=== PATIENT | male | born 1955 | race Caucasian/White ===

== ENCOUNTER 2020-07-01 10:25 | Emergency (ER) | payer MEDICARE, OTHER ==
[~2020-07-01] VITALS: Ht 180.3 cm; Wt 95.3 kg
[~2020-07-01 10:25] MED LIST: ALLUPURINOL; GLIMPERIDE; HYDROCO; JANUMET; Z.0.CYMBALTA60 MG PO; Z.0.LISINOPRIL40 MG PO; Z.0.PROTONIX20 MG PO; Z.0.VYTORIN 10-401 E PO
[2020-07-01] MEDS ORDERED: ONDANSETRON HCL INJ 2MG/ML 2ML 2 MG/ML VIAL IV STA (11:32)
[2020-07-01] MEDS ORDERED: SODIUM CHLORIDE 0.9% 1000ML 1,000 ML IV STA ×2 (11:32→12:26)
[2020-07-01] MEDS ORDERED: SODIUM CHLORIDE FLUSH 10 ML SYR INJ PRN (11:45)
[2020-07-01] MEDS ORDERED: ONDANSETRON HCL INJ 2MG/ML 2ML 2 MG/ML VIAL ONE (11:52)
[2020-07-01] MEDS ORDERED: SODIUM CHLORIDE 0.9% 1000ML 1,000 ML ONE ×2 (11:52→12:42)
[2020-07-01] MEDS ORDERED: METFORMIN HCL500 MG PO (12:02)
[2020-07-01] MEDS ORDERED: PREDNISONE20 MG PO (15:16)
[2020-07-01] MEDS ORDERED: PROAIR HFA INH8.5 GM PO (15:16)
[2020-07-01] MEDS ORDERED: ONDANSETRON ODT8 MG PO (15:16)
[2020-07-01] MEDS ORDERED: BROMFED DM COU118 ML PO (15:16)
[2020-07-01] MEDS ORDERED: ALBUTEROL2.5 MG/3 M INH (15:16)
[2020-07-01] MEDS ORDERED: AZITHROMYCIN500 MG PO (15:16)
[2020-07-01 15:27] VITALS: BP 137/78
== END 2020-07-01 15:37 | disposition home or self-care (01) ==
LOC: FSED 10:45
DX: J40 Bronchitis, not specified as acute or chronic (principal); R05 Cough; R11.0 Nausea; N17.9 Acute kidney failure, unspecified; R79.89 Other specified abnormal findings of blood chemistry
CPT/HCPCS: 71046; 80048; 85025; 96374; 99284; J2405; J7030

== ENCOUNTER 2020-07-13 23:26 | Inpatient (IN) | payer MEDICARE, OTHER ==
[~2020-07-13] VITALS: Ht 180.3 cm; Wt 95.3 kg
[~2020-07-13 23:26] MED LIST changes: +ALBUTEROL2.5 MG/3 M INH; +AZITHROMYCIN500 MG PO; +BROMFED DM COU118 ML PO; +METFORMIN HCL500 MG PO; +ONDANSETRON ODT8 MG PO; +PREDNISONE20 MG PO; +PROAIR HFA INH8.5 GM PO
[2020-07-13] MEDS ORDERED: ASPIRIN 81 MG CHEW TAB PO ONE (23:45)
[2020-07-13] MEDS ORDERED: CLOPIDOGREL BISULFATE 75 MG TAB PO ONE (23:45)
[2020-07-14] VITALS (17 sets, daily range): BP systolic 104–168; BP diastolic 61–98
[2020-07-14] MEDS ORDERED: ASPIRIN 81 MG ENTERIC COATED PO ONE (00:01)
[2020-07-14] MEDS ORDERED: CLOPIDOGREL BISULFATE 75 MG TAB ONE (00:01)
[2020-07-14 00:36] LABS: BASOPHILS # (AUTO) 0.1 (0.0-0.1); BASOPHILS % 0.4 % (0.0-1.0); EOSINOPHILS # (AUTO) 0.3 (0.0-0.4); HEMATOCRIT 39.9 % (38.2-49.6); LYMPHOCYTES # (AUTO) 3.9 (1.0-3.2); LYMPHOCYTES % 27.3 % (18.0-39.1); MEAN CORPUSCULAR HEMOGLOBIN 31.1 pg (28-32); MEAN CORPUSCULAR HGB CONC 35.1 g/dL (31-35); MEAN CORPUSCULAR VOLUME 88.7 fL (81-99); MONOCYTES # (AUTO) 1.3 (0.2-0.8); MONOCYTES % 9.2 % (4.4-11.3); NEUTROPHILS # (AUTO) 8.7 (2.1-6.9); NEUTROPHILS % 60.5 % (38.7-80.0); PLATELET COUNT 253 x10e3/uL (140-360); RED CELL DISTRIBUTION WIDTH 11.6 % (11.7-14.4)
[2020-07-14 00:41] LABS: INR 0.8; PARTIAL THROMBOPLASTIN TIME 26.3 seconds (23.8-35.5); PROTHROMBIN TIME 11.5 seconds (11.9-14.5)
[2020-07-14] MEDS ORDERED: SODIUM CHLORIDE 0.9% 1000ML 1,000 ML ONE ×2 (00:42→00:43)
[2020-07-14 00:48] LABS: ALANINE AMINOTRANSFERASE 42 IU/L (0-55); ALBUMIN 4.3 g/dL (3.5-5.0); ALBUMIN/GLOBULIN RATIO 1.2 (0.8-2.0); ALKALINE PHOSPHATASE 105 IU/L (40-150); ANION GAP 16.5 mmol/L (8-16); BLOOD UREA NITROGEN 27 mg/dL (7-26); BUN/CREATININE RATIO 17 (6-25); CALCIUM 10.1 mg/dL (8.4-10.2); CARBON DIOXIDE 24 mmol/L (22-29); CHLORIDE 100 mmol/L (98-107); CREATINE KINASE 40 IU/L (30-200); CREATININE, SERUM 1.61 mg/dL (0.72-1.25); EST GLOMERULAR FILTRATION RATE 43 ML/MIN (60-); GLUCOSE 333 mg/dL (74-118); POTASSIUM 5.5 mmol/L (3.5-5.1); SODIUM 135 mmol/L (136-145)
[2020-07-14] MEDS ORDERED: MIDAZOLAM HCL 2 MG/2 ML VIAL ONE (00:56)
[2020-07-14] MEDS ORDERED: FENTANYL CITRATE/PF 100MCG/2 ML INJ ONE (00:56)
[2020-07-14] MEDS ORDERED: EPTIFIBATIDE 10 ML ONE (01:01)
[2020-07-14 01:02] LABS: CREATINE KINASE MB < 1.00 ng/mL (0-4.3)
[2020-07-14] MEDS ORDERED: METOCLOPRAMIDE HCL 10 MG/2ML VIAL ONE (01:08)
[2020-07-14] MEDS ORDERED: HYDRALAZINE HCL 20 MG/ML VIAL ONE (01:12)
[2020-07-14] MEDS ORDERED: EPINEPHRINE HCL SYRINGE ONE (01:28)
[2020-07-14] MEDS: METOPROLOL TARTRATE 25 MG TAB PO SCH ×3 (01:45→17:31)
[2020-07-14] MEDS ORDERED: ACETAMINOPHEN 325 MG TAB PO PRN (01:45)
[2020-07-14 01:51] LABS: AMYLASE 100 U/L (25-125); LIPASE 149 U/L (8-78)
[2020-07-14] MEDS ORDERED: ASPIRIN 81 MG CHEW TAB PO ONE (02:30)
[2020-07-14] MEDS ORDERED: GLIMEPIRIDE4 MG PO (03:43)
[2020-07-14] MEDS ORDERED: SODIUM CHLORIDE 0.9% 100 ML ONE (04:54)
[2020-07-14] MEDS ORDERED: IOPAMIDOL 370 MG/ML 200 ML INFUS..BTL INJ ONE (04:54)
[2020-07-14 07:03] LABS: CREATINE KINASE MB 0.6 ng/mL (0-5.0)
[2020-07-14 07:20] LABS: BASOPHILS # (AUTO) 0.1 (0.0-0.1); BASOPHILS % 0.3 % (0.0-1.0); EOSINOPHILS # (AUTO) 0.1 (0.0-0.4); EOSINOPHILS % 0.3 % (0.0-6.0); HEMATOCRIT 38.6 % (38.2-49.6); HEMOGLOBIN 13.8 g/dL (14.0-18.0); LYMPHOCYTES # (AUTO) 2.4 (1.0-3.2); LYMPHOCYTES % 12.4 % (18.0-39.1); MEAN CORPUSCULAR HEMOGLOBIN 31.5 pg (28-32); MEAN CORPUSCULAR HGB CONC 35.8 g/dL (31-35); MEAN CORPUSCULAR VOLUME 88.1 fL (81-99); MONOCYTES # (AUTO) 1.6 (0.2-0.8); MONOCYTES % 8.3 % (4.4-11.3); NEUTROPHILS # (AUTO) 15.2 (2.1-6.9); NEUTROPHILS % 78.1 % (38.7-80.0); PLATELET COUNT 281 x10e3/uL (140-360); RED BLOOD COUNT 4.38 x10e6/uL (4.3-5.7); RED CELL DISTRIBUTION WIDTH 11.9 % (11.7-14.4)
[2020-07-14 07:24] LABS: AMYLASE 69 U/L (25-125); LIPASE 81 U/L (8-78)
[2020-07-14 07:38] LABS: ALBUMIN 4.2 g/dL (3.5-5.0); ALBUMIN/GLOBULIN RATIO 1.2 (0.8-2.0); ANION GAP 19.9 mmol/L (8-16); CREATININE, SERUM 1.46 mg/dL (0.72-1.25)
[2020-07-14 07:45] LABS: POTASSIUM 5.9 mmol/L (3.5-5.1)
[2020-07-14] MEDS ORDERED: MORPHINE SULFATE INJ 2 MG/ML SYR IV PRN (08:45)
[2020-07-14] MEDS: AMLODIPINE BESYLATE 5 MG TAB PO SCH (08:57)
[2020-07-14] MEDS: SODIUM CHLORIDE 0.9% 1000ML 1,000 ML IV SCH ×3 (08:57→17:12)
[2020-07-14] MEDS ORDERED: DEXTROSE 50% SYRINGE 50 ML IV PRN ×3 (09:45→13:45)
[2020-07-14] MEDS ORDERED: LABETALOL HCL 5 MG/ML 20ML VIAL IV PRN (10:30)
[2020-07-14] MEDS ORDERED: HYDROMORPHONE 1MG/1ML INJ IV ONE (10:45)
[2020-07-14] MEDS ORDERED: INSULIN REGULAR, HUMAN 3ML VL 100 UNIT in SODIUM CHLORIDE 0.9% 100 ML IV SCH ×2 (11:00)
[2020-07-14] MEDS: HYDROMORPHONE 1MG/1ML INJ IV PRN ×3 (11:30→21:25)
[2020-07-14] MEDS ORDERED: INSULIN REGULAR, HUMAN 100 UNIT/1 ML 3ML VIAL SQ SCH (11:30)
[2020-07-14] MEDS ORDERED: FUROSEMIDE40 MG PO (12:19)
[2020-07-14] MEDS ORDERED: NICODERM CQ1 EAC1 (12:20)
[2020-07-14] MEDS ORDERED: PROPRANOLOL HCL10 MG PO (12:23)
[2020-07-14] MEDS ORDERED: PANTOPRAZOLE SO40 MG PO (12:24)
[2020-07-14] MEDS ORDERED: ALDACTONE25 MG PO (12:24)
[2020-07-14 14:20] LABS: CREATINE KINASE MB 0.8 ng/mL (0-5.0)
[2020-07-14 14:31] LABS: FREE T4 (FREE THYROXINE) 1.33 ng/dL (0.8-1.8); THYROID STIMULATING HORMONE 1.05 uIU/mL (0.350-4.940)
[2020-07-14] MEDS: METRONIDAZOLE 500MG/NS 100ML 100 ML IV SCH ×2 (14:41→21:03)
[2020-07-14] MEDS: CEFEPIME 1GM/NS 0.9% 50 ML 50 ML IV SCH ×2 (15:30→22:27)
[2020-07-14] MEDS ORDERED: CALCIUM CHLORIDE 10% 1.36 MEQ/ML 10ML SYR IV STA (15:34)
[2020-07-14] MEDS ORDERED: CALCIUM CHLORIDE 13.6 MEQ in SODIUM CHLORIDE 0.9% 100 ML IV ONE (16:00)
[2020-07-14] MEDS ORDERED: DEXTROSE 50% SYRINGE 50 ML IV ONE (16:30)
[2020-07-14] MEDS ORDERED: INSULIN REGULAR, HUMAN 100 UNIT/1 ML 3ML VIAL IV ONE (16:30)
[2020-07-14] MEDS ORDERED: SOD POLYSTYRENE SULFONATE SUSP 15 GM/60 ML BTL PO ONE (16:30)
[2020-07-14] MEDS ORDERED: METFORMIN HCL 500 MG TAB PO SCH (17:00)
[2020-07-14] MEDS ORDERED: NON-FORMULARY MEDICATION (Glimepiride 4 MG) PO SCH (17:00)
[2020-07-14] MEDS ORDERED: INSULIN REGULAR, HUMAN 100 UNIT/1 ML 3ML VIAL ONE (17:24)
[2020-07-14] MEDS: INSULIN REGULAR, HUMAN 3ML VL 100 UNIT in SODIUM CHLORIDE 0.9% 99 ML IV SCH ×2 (17:45)
[2020-07-14 18:34] LABS: CLARITY,URINE SL CLOUDY (CLEAR); COLOR,URINE AMBER (YELLOW)
[2020-07-14 18:35] LABS: KETONES,URINE NEGATIVE (NEGATIVE); LEUKOCYTE ESTERASE ,URINE NEGATIVE (NEGATIVE); NITRITE,URINE NEGATIVE (NEGATIVE); PROTEIN,URINE DIPSTICK 1+ (NEGATIVE); URINE UROBILINOGEN 0.2 mg/dL (0.2 - 1)
[2020-07-14 18:49] LABS: BACTERIA,URINE MANY /HPF; RBC,URINE 0-5 /HPF (0-5)
[2020-07-14] MEDS ORDERED: LIDOCAINE HCL 1% LOCAL INJ 20 ML VIAL ONE (20:09)
[2020-07-14] MEDS ORDERED: HEPARIN SOD (PORCINE) 1000 UNIT/ML SDV ONE (23:08)
[2020-07-15] VITALS (7 sets, daily range): BP systolic 102–134; BP diastolic 63–84
[2020-07-15] MEDS: SODIUM CHLORIDE 0.9% 1000ML 1,000 ML IV SCH ×3 (01:45→18:58)
[2020-07-15] MEDS: HYDROMORPHONE 1MG/1ML INJ IV PRN ×3 (02:24→22:09)
[2020-07-15] MEDS: METRONIDAZOLE 500MG/NS 100ML 100 ML IV SCH ×3 (03:50→18:16)
[2020-07-15 04:55] LABS: BASOPHILS # (AUTO) 0.1 (0.0-0.1); BASOPHILS % 0.3 % (0.0-1.0); HEMATOCRIT 40.8 % (38.2-49.6); HEMOGLOBIN 14.4 g/dL (14.0-18.0); LYMPHOCYTES # (AUTO) 1.9 (1.0-3.2); LYMPHOCYTES % 7.4 % (18.0-39.1); MEAN CORPUSCULAR HEMOGLOBIN 31.1 pg (28-32); MEAN CORPUSCULAR HGB CONC 35.3 g/dL (31-35); MEAN CORPUSCULAR VOLUME 88.1 fL (81-99); MONOCYTES # (AUTO) 1.8 (0.2-0.8); MONOCYTES % 7.1 % (4.4-11.3); NEUTROPHILS # (AUTO) 21.1 (2.1-6.9); NEUTROPHILS % 84.3 % (38.7-80.0); PLATELET COUNT 233 x10e3/uL (140-360); RED BLOOD COUNT 4.63 x10e6/uL (4.3-5.7); RED CELL DISTRIBUTION WIDTH 12.1 % (11.7-14.4)
[2020-07-15] MEDS: CEFEPIME 1GM/NS 0.9% 50 ML 50 ML IV SCH ×3 (04:55→21:11)
[2020-07-15] MEDS ORDERED: HEPARIN SOD/SOD CHLORIDE 1,000 ML IV PRN (05:00)
[2020-07-15] MEDS ORDERED: HEPARIN SOD (PORCINE) 1000 UNIT/ML SDV IV PRN ×2 (05:00→12:45)
[2020-07-15] MEDS ORDERED: SODIUM CHLORIDE 0.9% 1000ML 2,000 ML IV PRN (05:00)
[2020-07-15 05:12] LABS: ALBUMIN 3.6 g/dL (3.5-5.0); ALBUMIN/GLOBULIN RATIO 0.9 (0.8-2.0); ANION GAP 17.5 mmol/L (8-16); CALCIUM 10.3 mg/dL (8.4-10.2); CREATININE, SERUM 1.51 mg/dL (0.72-1.25); POTASSIUM 5.5 mmol/L (3.5-5.1)
[2020-07-15 05:25] LABS: MAGNESIUM 1.7 MG/DL (1.3-2.1); PHOSPHORUS 2.7 MG/DL (2.3-4.7)
[2020-07-15 05:50] LABS: AMYLASE 40 U/L (25-125); LIPASE 16 U/L (8-78)
[2020-07-15] MEDS: METOPROLOL TARTRATE 25 MG TAB PO SCH ×2 (07:11→18:58)
[2020-07-15] MEDS: ONDANSETRON HCL INJ 2MG/ML 2ML 2 MG/ML VIAL IV PRN ×2 (08:57→16:00)
[2020-07-15] MEDS: NICOTINE 14 MG/EA PATCH TOP SCH ×2 (09:00→18:22)
[2020-07-15] MEDS: PANTOPRAZOLE 40 MG 10ML VIAL IV SCH ×2 (09:00→18:22)
[2020-07-15] MEDS ORDERED: NON-FORMULARY MEDICATION (Duloxetine Hcl (Cymbalta) 60 MG) PO SCH (09:00)
[2020-07-15] MEDS ORDERED: NON-FORMULARY MEDICATION (Lisinopril 40 MG) PO SCH (09:00)
[2020-07-15] MEDS ORDERED: LISINOPRIL 20 MG TAB PO SCH (09:00)
[2020-07-15] MEDS ORDERED: FUROSEMIDE INJ 10 MG/ML 2 ML VIAL IV NR (14:15)
[2020-07-15] MEDS ORDERED: MORPHINE SULFATE INJ 4 MG/ML INJ 1ML IV ONE (16:45)
[2020-07-15] MEDS ORDERED: MORPHINE SULFATE INJ 2 MG/ML SYR ONE (16:52)
[2020-07-15] MEDS: DULOXETINE HCL 30 MG DELAYED RELEASE PO SCH (18:16)
[2020-07-15] MEDS: AMLODIPINE BESYLATE 5 MG TAB PO SCH (18:16)
[2020-07-15 20:19] LABS: CLARITY,URINE CLOUDY (CLEAR); COLOR,URINE BROWN (YELLOW); KETONES,URINE 1+ (NEGATIVE); LEUKOCYTE ESTERASE ,URINE NEGATIVE (NEGATIVE); NITRITE,URINE NEGATIVE (NEGATIVE); PROTEIN,URINE DIPSTICK >=300 (NEGATIVE); URINE UROBILINOGEN 1 mg/dL (0.2 - 1)
[2020-07-15 20:43] LABS: BACTERIA,URINE MANY /HPF
[2020-07-16] VITALS (9 sets, daily range): BP systolic 96–131; BP diastolic 59–88
[2020-07-16] MEDS: METRONIDAZOLE 500MG/NS 100ML 100 ML IV SCH ×5 (02:23→23:14)
[2020-07-16] MEDS: CEFEPIME 1GM/NS 0.9% 50 ML 50 ML IV SCH ×3 (04:36→21:18)
[2020-07-16 04:51] LABS: BASOPHILS % 0.2 % (0.0-1.0); EOSINOPHILS % 0.2 % (0.0-6.0); HEMATOCRIT 37.6 % (38.2-49.6); HEMOGLOBIN 13.1 g/dL (14.0-18.0); MEAN CORPUSCULAR HEMOGLOBIN 31.3 pg (28-32); MEAN CORPUSCULAR HGB CONC 34.8 g/dL (31-35); MONOCYTES # (AUTO) 1.1 (0.2-0.8); MONOCYTES % 5.3 % (4.4-11.3); NEUTROPHILS # (AUTO) 16.5 (2.1-6.9); NEUTROPHILS % 83.5 % (38.7-80.0); PLATELET COUNT 202 x10e3/uL (140-360); RED BLOOD COUNT 4.18 x10e6/uL (4.3-5.7); RED CELL DISTRIBUTION WIDTH 12.4 % (11.7-14.4)
[2020-07-16 05:14] LABS: ALBUMIN/GLOBULIN RATIO 0.8 (0.8-2.0); ANION GAP 19.3 mmol/L (8-16); CALCIUM 9.3 mg/dL (8.4-10.2); CREATININE, SERUM 1.55 mg/dL (0.72-1.25); POTASSIUM 4.3 mmol/L (3.5-5.1)
[2020-07-16] MEDS: SODIUM CHLORIDE 0.9% 1000ML 1,000 ML IV SCH (06:13)
[2020-07-16] MEDS ORDERED: ONDANSETRON HCL INJ 2MG/ML 2ML 2 MG/ML VIAL IV PRN (06:45)
[2020-07-16] MEDS ORDERED: ACETAMINOPHEN 325 MG TAB PO PRN (06:45)
[2020-07-16] MEDS ORDERED: HYDRALAZINE HCL 20 MG/ML VIAL IV PRN (06:45)
[2020-07-16] MEDS ORDERED: SUGAMMADEX SODIUM 200 MG/2 ML VIAL IV ONE (08:24)
[2020-07-16] MEDS ORDERED: BUPIVACAINE 0.25%/EPI 30ML SDV INJ ONE (08:25)
[2020-07-16] MEDS ORDERED: DEXTROSE 50% SYRINGE 50 ML IV ONE (08:49)
[2020-07-16] MEDS ORDERED: INSULIN REGULAR, HUMAN 100 UNIT/1 ML 3ML VIAL ONE (08:50)
[2020-07-16] MEDS ORDERED: CALCIUM CHLORIDE 10% SYRINGE 0 ML IV ONE (08:51)
[2020-07-16] MEDS: AMLODIPINE BESYLATE 5 MG TAB PO SCH (09:00)
[2020-07-16] MEDS: NICOTINE 14 MG/EA PATCH TOP SCH (09:00)
[2020-07-16] MEDS: METOPROLOL TARTRATE 25 MG TAB PO SCH ×2 (09:00→19:07)
[2020-07-16] MEDS: DULOXETINE HCL 30 MG DELAYED RELEASE PO SCH (09:00)
[2020-07-16] MEDS: PANTOPRAZOLE 40 MG 10ML VIAL IV SCH ×2 (09:00→17:00)
[2020-07-16] MEDS ORDERED: HYDROMORPHONE 2MG/ML 2 MG/ML ML ONE ×2 (09:23→09:25)
[2020-07-16] MEDS ORDERED: SUCCINYLCHOLINE CHLORIDE 20 MG/ML 10ML VIAL ONE (12:06)
[2020-07-16] MEDS ORDERED: DEXAMETHASONE SOD PHOS INJ 4 MG/ML VIAL ONE (12:06)
[2020-07-16] MEDS ORDERED: SEVOFLURANE INHAL SOLN 250 ML PEN BTL ONE (12:06)
[2020-07-16] MEDS ORDERED: CEFOXITIN SOD 1 GM VIAL ONE (12:06)
[2020-07-16] MEDS ORDERED: PHENYLEPHRINE HCL 1% 10 MG/ML VIAL ONE (12:06)
[2020-07-16] MEDS ORDERED: ONDANSETRON HCL INJ 2MG/ML 2ML 2 MG/ML VIAL ONE (12:06)
[2020-07-16] MEDS ORDERED: LIDOCAINE HCL 2% LOCAL INJ 5 ML SDV VIAL INJ ONE (12:06)
[2020-07-16] MEDS ORDERED: ROCURONIUM BROMIDE 10 MG/ML 5ML VIAL IV ONE (12:06)
[2020-07-16] MEDS ORDERED: PROPOFOL IV EMULSION 10 MG/ML 20 ML VIAL ONE (12:06)
[2020-07-16] MEDS ORDERED: FENTANYL CITRATE/PF 100MCG/2 ML INJ ONE (12:44)
[2020-07-16] MEDS ORDERED: MIDAZOLAM HCL 2 MG/2 ML VIAL ONE (12:44)
[2020-07-16] MEDS: HYDROMORPHONE 1MG/1ML INJ IV PRN ×3 (14:20→23:26)
[2020-07-16] MEDS: INSULIN REGULAR, HUMAN 3ML VL 100 UNIT in SODIUM CHLORIDE 0.9% 99 ML IV SCH ×2 (21:17)
[2020-07-17] VITALS (11 sets, daily range): BP systolic 80–140; BP diastolic 46–96
[2020-07-17] MEDS: CEFEPIME 1GM/NS 0.9% 50 ML 50 ML IV SCH ×3 (04:18→23:07)
[2020-07-17] MEDS: HYDROMORPHONE 1MG/1ML INJ IV PRN (04:33)
[2020-07-17 04:46] LABS: BASOPHILS % 0.1 % (0.0-1.0); EOSINOPHILS % 0.1 % (0.0-6.0); HEMOGLOBIN 10.5 g/dL (14.0-18.0); LYMPHOCYTES # (AUTO) 1.2 (1.0-3.2); LYMPHOCYTES % 10.9 % (18.0-39.1); MEAN CORPUSCULAR HEMOGLOBIN 32.2 pg (28-32); MONOCYTES # (AUTO) 0.4 (0.2-0.8); MONOCYTES % 3.9 % (4.4-11.3); NEUTROPHILS % 84.7 % (38.7-80.0); PLATELET COUNT 154 x10e3/uL (140-360); RED BLOOD COUNT 3.26 x10e6/uL (4.3-5.7); RED CELL DISTRIBUTION WIDTH 12.1 % (11.7-14.4)
[2020-07-17 05:08] LABS: ALANINE AMINOTRANSFERASE 44 IU/L (0-55); ALBUMIN 2.5 g/dL (3.5-5.0); ALBUMIN/GLOBULIN RATIO 0.7 (0.8-2.0); ALKALINE PHOSPHATASE 78 IU/L (40-150); ANION GAP 16.1 mmol/L (8-16); BLOOD UREA NITROGEN 33 mg/dL (7-26); BUN/CREATININE RATIO 28 (6-25); CALCIUM 8.1 mg/dL (8.4-10.2); CARBON DIOXIDE 22 mmol/L (22-29); CHLORIDE 104 mmol/L (98-107); CREATININE, SERUM 1.19 mg/dL (0.72-1.25); EST GLOMERULAR FILTRATION RATE > 60 ML/MIN (60-); GLUCOSE 149 mg/dL (74-118); POTASSIUM 4.1 mmol/L (3.5-5.1); SODIUM 138 mmol/L (136-145)
[2020-07-17] MEDS: PANTOPRAZOLE 40 MG 10ML VIAL IV SCH ×2 (09:00→17:34)
[2020-07-17] MEDS: AMLODIPINE BESYLATE 5 MG TAB PO SCH (09:00)
[2020-07-17] MEDS: NICOTINE 14 MG/EA PATCH TOP SCH (09:00)
[2020-07-17] MEDS: DULOXETINE HCL 30 MG DELAYED RELEASE PO SCH (09:25)
[2020-07-17] MEDS: METRONIDAZOLE 500MG/NS 100ML 100 ML IV SCH ×2 (10:12→17:34)
[2020-07-17] MEDS: METOPROLOL TARTRATE 25 MG TAB PO SCH ×2 (10:12→17:00)
[2020-07-17] MEDS ORDERED: ENOXAPARIN SOD INJ 40 MG/0.4 ML SYR SC SCH (17:00)
[2020-07-17] MEDS ORDERED: DEXTROSE 50% SYRINGE 50 ML IV PRN (17:15)
[2020-07-17] MEDS ORDERED: INSULIN REGULAR, HUMAN 100 UNIT/1 ML 3ML VIAL SQ ONE (17:15)
[2020-07-17] MEDS ORDERED: INSULIN LISPRO 100 UNIT/1 ML 3ML VIAL SQ ONE (18:00)
[2020-07-17] MEDS: INSULIN LISPRO 100 UNIT/1 ML 3ML VIAL SQ SCH (21:00)
[2020-07-17] MEDS ORDERED: INSULIN GLARGINE 100 UNITS/ML VIAL SQ SCH (21:00)
[2020-07-17] MEDS ORDERED: SODIUM CHLORIDE 0.9% 250ML 250 ML ONE (21:34)
[2020-07-18] VITALS: BP 114/53
[2020-07-18] MEDS: METRONIDAZOLE 500MG/NS 100ML 100 ML IV SCH ×2 (02:30→09:32)
[2020-07-18] MEDS: CEFEPIME 1GM/NS 0.9% 50 ML 50 ML IV SCH (04:49)
[2020-07-18 05:51] LABS: BASOPHILS % 0.2 % (0.0-1.0); EOSINOPHILS # (AUTO) 0.1 (0.0-0.4); HEMATOCRIT 31.1 % (38.2-49.6); HEMOGLOBIN 10.8 g/dL (14.0-18.0); LYMPHOCYTES # (AUTO) 1.7 (1.0-3.2); LYMPHOCYTES % 26.8 % (18.0-39.1); MEAN CORPUSCULAR HEMOGLOBIN 31.8 pg (28-32); MEAN CORPUSCULAR HGB CONC 34.7 g/dL (31-35); MEAN CORPUSCULAR VOLUME 91.5 fL (81-99); MONOCYTES # (AUTO) 0.4 (0.2-0.8); NEUTROPHILS % 64.5 % (38.7-80.0); PLATELET COUNT 184 x10e3/uL (140-360)
[2020-07-18 06:23] LABS: ANION GAP 12.9 mmol/L (8-16); BLOOD UREA NITROGEN 28 mg/dL (7-26); BUN/CREATININE RATIO 26 (6-25); CALCIUM 8.3 mg/dL (8.4-10.2); CARBON DIOXIDE 22 mmol/L (22-29); CHLORIDE 105 mmol/L (98-107); CREATININE, SERUM 1.08 mg/dL (0.72-1.25); EST GLOMERULAR FILTRATION RATE > 60 ML/MIN (60-); GLUCOSE 169 mg/dL (74-118); POTASSIUM 3.9 mmol/L (3.5-5.1); SODIUM 136 mmol/L (136-145)
[2020-07-18 08:00] VITALS: BP 119/58
[2020-07-18 08:45] VITALS: BP 119/58
[2020-07-18] MEDS: NICOTINE 14 MG/EA PATCH TOP SCH (09:00)
[2020-07-18] MEDS: DULOXETINE HCL 30 MG DELAYED RELEASE PO SCH (09:42)
[2020-07-18] MEDS: PANTOPRAZOLE 40 MG 10ML VIAL IV SCH (09:42)
[2020-07-18] MEDS: AMLODIPINE BESYLATE 5 MG TAB PO SCH (09:42)
[2020-07-18] MEDS: METOPROLOL TARTRATE 25 MG TAB PO SCH (09:42)
[2020-07-18] MEDS: INSULIN LISPRO 100 UNIT/1 ML 3ML VIAL SQ SCH ×4 (09:59→12:04)
[2020-07-18] MEDS ORDERED: GLIMEPIRIDE2 MG PO (10:16)
[2020-07-18] MEDS ORDERED: OZEMPIC0.25 MG/0. SC (10:17)
[2020-07-18] MEDS ORDERED: TYLENOL # 31 EA PO ×2 (10:22→10:28)
[2020-07-18] MEDS ORDERED: ACETAMINOPHEN/CODEINE 300MG - 30MG TAB PO PRN (10:30)
[2020-07-18 12:00] VITALS: BP 140/63
[2020-07-18 16:00] VITALS: BP 135/79
== END 2020-07-18 17:41 | disposition home or self-care (01) | DRG 853 ==
LOC: ER 23:37 → MED/SURG3 07-14 02:23 → OBSVTOIN 07-14 09:42 → IMCU 07-14 16:05 → MED/SURG2 07-17 19:30
PROVIDERS: ADMIT Internal Medicine; ATTEND Internal Medicine
PROC: 02HV33Z Insertion of Infusion Device into Superior Vena Cava, Percutaneous Approach (ICD-10-PCS; 2020-07-14)
PROC: 5A1D70Z Performance of Urinary Filtration, Intermittent, Less than 6 Hours Per Day (ICD-10-PCS; 2020-07-14)
PROC: 4A023N7 Measurement of Cardiac Sampling and Pressure, Left Heart, Percutaneous Approach (ICD-10-PCS; 2020-07-14)
PROC: B2111ZZ Fluoroscopy of Multiple Coronary Arteries using Low Osmolar Contrast (ICD-10-PCS; 2020-07-14)
PROC: B2151ZZ Fluoroscopy of Left Heart using Low Osmolar Contrast (ICD-10-PCS; 2020-07-14)
PROC: 0FT44ZZ Resection of Gallbladder, Percutaneous Endoscopic Approach (ICD-10-PCS; principal; 2020-07-16 07:00)
DX: A41.9 Sepsis, unspecified organism (principal); E11.10 Type 2 diabetes mellitus with ketoacidosis without coma; U07.1 COVID-19; I21.3 ST elevation (STEMI) myocardial infarction of unspecified site; J12.9 Viral pneumonia, unspecified; J96.01 Acute respiratory failure with hypoxia; N17.0 Acute kidney failure with tubular necrosis; E87.2 Acidosis; K81.0 Acute cholecystitis; R65.20 Severe sepsis without septic shock; E11.22 Type 2 diabetes mellitus with diabetic chronic kidney disease; N18.9 Chronic kidney disease, unspecified; I10 Essential (primary) hypertension; I25.10 Atherosclerotic heart disease of native coronary artery without angina pectoris; E87.5 Hyperkalemia; E78.5 Hyperlipidemia, unspecified; F32.9 Major depressive disorder, single episode, unspecified; N18.30 Chronic kidney disease, stage 3 unspecified; K82.A1 Gangrene of gallbladder in cholecystitis
CPT/HCPCS: 36415; 36556; 71045; 71275; 74175; 74470; 76700; 76937; 77001; 78227; 80048; 80053; 81001; 82150; 82550; 82553; 82948; 83036; 83690; 83735; 83880; 84100; 84132; 84439; 84443; 84484; 85025; 85379; 85610; 85730; 86706; 87040; 87340; 87350; 88304; 93306; 93458; 99152; 99153; 99284; A9537; C1766; C1887; J0171; J0330; J0360; J0692; J0694; J1100; J1170; J1327; J1644; J1650; J1815; J1817; J1940; J2001; J2250; J2270; J2370; J2405; J2765; J3010; J7030; J7050; J7799; Q9967; U0002

== ENCOUNTER 2024-10-15 14:23 | Emergency (ER) | payer MEDICARE, OTHER ==
[~2024-10-15] VITALS: Ht 180.3 cm; Wt 95.3 kg
[~2024-10-15 14:23] MED LIST changes: +ALDACTONE25 MG PO; +FUROSEMIDE40 MG PO; +GLIMEPIRIDE2 MG PO; +GLIMEPIRIDE4 MG PO; +NICODERM CQ1 EAC1; +OZEMPIC0.25 MG/0. SC; +PANTOPRAZOLE SO40 MG PO; +PROPRANOLOL HCL10 MG PO; +TYLENOL # 31 EA PO
[2024-10-15 14:46] VITALS: TEMP 98.9
[2024-10-15] MEDS: ONDANSETRON HCL INJ 2MG/ML 2ML 2 MG/ML VIAL IV STA (14:55)
[2024-10-15] MEDS: SODIUM CHLORIDE 0.9% 1000ML 1,000 ML IV STA (14:55)
[2024-10-15 15:04] LABS: BASOPHILS % 0.2 % (0.0-1.0); EOSINOPHILS # (AUTO) 0.2 (0.0-0.4); EOSINOPHILS % 2.6 % (0.0-6.0); HEMATOCRIT 39.6 % (38.2-49.6); HEMOGLOBIN 14.2 g/dL (14.0-18.0); LYMPHOCYTES # (AUTO) 2.4 (1.0-3.2); LYMPHOCYTES % 35.6 % (18.0-39.1); MEAN CORPUSCULAR HEMOGLOBIN 31.8 pg (28-32); MEAN CORPUSCULAR HGB CONC 35.9 g/dL (31-35); MEAN CORPUSCULAR VOLUME 88.6 fL (81-99); MONOCYTES # (AUTO) 0.4 (0.2-0.8); MONOCYTES % 5.3 % (4.4-11.3); NEUTROPHILS # (AUTO) 3.7 (2.1-6.9); PLATELET COUNT 218 x10e3/uL (140-360); RED BLOOD COUNT 4.47 x10e6/uL (4.3-5.7); RED CELL DISTRIBUTION WIDTH 11.9 % (11.7-14.4); WHITE BLOOD COUNT 6.62 x10e3/uL (4.8-10.8)
[2024-10-15 15:34] LABS: ALANINE AMINOTRANSFERASE 19 IU/L (0-55); ALBUMIN 4.6 g/dL (3.5-5.0); ALBUMIN/GLOBULIN RATIO 1.3 (0.8-2.0); ALKALINE PHOSPHATASE 75 IU/L (40-150); ANION GAP 19.2 mmol/L (8-16); BLOOD UREA NITROGEN 29 mg/dL (7-26); BUN/CREATININE RATIO 15 (6-25); CALCIUM 9.5 mg/dL (8.4-10.2); CARBON DIOXIDE 21 mmol/L (22-29); CHLORIDE 104 mmol/L (98-107); CREATINE KINASE 91 IU/L (30-200); CREATININE, SERUM 1.91 mg/dL (0.72-1.25); EST GLOMERULAR FILTRATION RATE 37 ML/MIN (>=60); GLUCOSE 179 mg/dL (74-118); LIPASE 88 U/L (8-78); SODIUM 139 mmol/L (136-145); TOTAL PROTEIN 8.1 g/dL (6.5-8.1)
[2024-10-15 15:38] LABS: POTASSIUM 5.2 mmol/L (3.5-5.1)
[2024-10-15 15:42] LABS: TROPONIN I < 0.001 ng/mL (0-0.300)
[2024-10-15 15:49] LABS: BILIRUBIN,TOTAL 0.6 mg/dL (0.2-1.2)
[2024-10-15] MEDS: SODIUM CHLORIDE 0.9% 1000ML 2,000 ML IV STA (17:00)
[2024-10-15] MEDS ORDERED: IOPAMIDOL 370 MG/ML 100 ML INFUS..BTL INJ ONE (17:13)
[2024-10-15 17:43] LABS: CLARITY,URINE CLEAR (CLEAR); COLOR,URINE YELLOW (YELLOW)
[2024-10-15] MEDS ORDERED: ONDANSETRON ODT4 MG PO (17:43)
[2024-10-15 17:44] LABS: BILIRUBIN,URINE NEGATIVE (NEGATIVE); GLUCOSE, URINE NEGATIVE (NEGATIVE); KETONES,URINE NEGATIVE (NEGATIVE); LEUKOCYTE ESTERASE ,URINE NEGATIVE (NEGATIVE); NITRITE,URINE NEGATIVE (NEGATIVE); PH,URINE 5.5 (5 - 7); PROTEIN,URINE DIPSTICK 2+ (NEGATIVE); URINE UROBILINOGEN 0.2 mg/dL (0.2 - 1)
[2024-10-15 17:48] LABS: BACTERIA,URINE MODERATE /HPF; EPITHELIAL CELLS,URINE RARE /LPF; RBC,URINE 0-5 /HPF (0-5); WBC,URINE (MAN) 0-5 /HPF (0-5)
[2024-10-15 17:49] LABS: MUCUS,URINE FEW; URIC ACID CRYSTALS,URINE FEW
[2024-10-15 18:10] VITALS: PULSE 80; RESP 18; O2SAT 99
[2024-10-15] MEDS ORDERED: PROTONIX40 MG PO (18:10)
[2024-10-17] MEDS ORDERED: LANTUS 3ML100 UNITS/ SQ (10:58)
== END 2024-10-15 18:00 | disposition home or self-care (01) ==
LOC: ER 14:31
DX: R11.2 Nausea with vomiting, unspecified (principal); R19.7 Diarrhea, unspecified; N28.9 Disorder of kidney and ureter, unspecified; R42 Dizziness and giddiness; E11.65 Type 2 diabetes mellitus with hyperglycemia; I10 Essential (primary) hypertension; Z86.73 Personal history of transient ischemic attack (TIA), and cerebral infarction without residual deficits
CPT/HCPCS: 36415; 74177; 80053; 81001; 82550; 83690; 84484; 85025; 93005; 99284; J2405; J7030; Q9967

== ENCOUNTER → 2024-10-19 | Day surgery (SDC) | payer MEDICARE, OTHER ==
[2024-10-17 13:47] LABS: BASOPHILS % 0.3 % (0.0-1.0); EOSINOPHILS # (AUTO) 0.2 (0.0-0.4); EOSINOPHILS % 2.8 % (0.0-6.0); HEMATOCRIT 35.8 % (38.2-49.6); LYMPHOCYTES # (AUTO) 2.4 (1.0-3.2); LYMPHOCYTES % 37.7 % (18.0-39.1); MEAN CORPUSCULAR HEMOGLOBIN 31.9 pg (28-32); MEAN CORPUSCULAR HGB CONC 36.3 g/dL (31-35); MONOCYTES # (AUTO) 0.4 (0.2-0.8); MONOCYTES % 6.1 % (4.4-11.3); NEUTROPHILS # (AUTO) 3.4 (2.1-6.9); NEUTROPHILS % 52.9 % (38.7-80.0); PLATELET COUNT 217 x10e3/uL (140-360); RED BLOOD COUNT 4.07 x10e6/uL (4.3-5.7); RED CELL DISTRIBUTION WIDTH 12.1 % (11.7-14.4)
[2024-10-17 15:34] LABS: BASOPHILS % (MANUAL) 1 % (0-1.5); EOSINOPHILS % (MANUAL) 2 % (0-7); LYMPHOCYTES % (MANUAL) 22 % (19-48); MONOCYTES % (MANUAL) 5 % (3.4-9.0); NEUTROPHILS % (MANUAL) 64 % (40-74); PLATELET ESTIMATE ADEQUATE; PLATELET MORPHOLOGY COMMENT NORMAL; RBC MORPHOLOGY COMMENT NORMAL; REACTIVE LYMPHOCYTES 6
[~2024-10-19] MED LIST changes: +FENTANYL CITRATE/PF 100MCG/2 ML INJ ONE; +LANTUS 3ML100 UNITS/ SQ; +LIDOCAINE HCL 2% LOCAL INJ 5 ML SDV VIAL INJ ONE; +METOCLOPRAMIDE HCL 10 MG/2ML VIAL ONE; +ONDANSETRON ODT4 MG PO; +PROPOFOL IV EMULSION 10 MG/ML 20 ML VIAL ONE; +PROTONIX40 MG PO
[2024-10-19] MEDS: LACTATED RINGER'S 1,000 ML ONE (16:08)
[2024-10-19 17:28] VITALS: TEMP 98
[2024-10-19 17:55] VITALS: BP 148/76; PULSE 70; RESP 16; O2SAT 97
== END | disposition home or self-care (01) ==
LOC: ENDO 15:37
PROVIDERS: ATTEND Internal Medicine Gastroenterology
DX: K22.2 Esophageal obstruction (principal); K29.50 Unspecified chronic gastritis without bleeding; K29.60 Other gastritis without bleeding; K20.90 Esophagitis, unspecified without bleeding; R19.7 Diarrhea, unspecified; Z86.0100 Personal history of colon polyps, unspecified; Z87.11 Personal history of peptic ulcer disease; E11.9 Type 2 diabetes mellitus without complications; I10 Essential (primary) hypertension; Z71.89 Other specified counseling; E78.00 Pure hypercholesterolemia, unspecified; N20.0 Calculus of kidney; Z88.2 Allergy status to sulfonamides; Z01.810 Encounter for preprocedural cardiovascular examination; Z01.812 Encounter for preprocedural laboratory examination; Z79.84 Long term (current) use of oral hypoglycemic drugs; Z79.4 Long term (current) use of insulin; Z79.899 Other long term (current) drug therapy; Z68.27 Body mass index [BMI] 27.0-27.9, adult; Z71.3 Dietary counseling and surveillance; Z86.73 Personal history of transient ischemic attack (TIA), and cerebral infarction without residual deficits
CPT/HCPCS: 36415 ×2; 43239; 43450; 82948; 85025; 88305; 93005; J2003; J2470; J2704; J2765; J3010; J7121

== ENCOUNTER → 2024-12-14 | Day surgery (SDC) | payer MEDICARE, OTHER ==
[2024-12-11 10:19] LABS: BASOPHILS # (AUTO) 0.1 (0.0-0.1); BASOPHILS % 0.8 % (0.0-1.0); EOSINOPHILS # (AUTO) 0.5 (0.0-0.4); EOSINOPHILS % 7.1 % (0.0-6.0); HEMATOCRIT 33.5 % (38.2-49.6); HEMOGLOBIN 12.1 g/dL (14.0-18.0); LYMPHOCYTES # (AUTO) 2.3 (1.0-3.2); LYMPHOCYTES % 35.9 % (18.0-39.1); MEAN CORPUSCULAR HEMOGLOBIN 32.3 pg (28-32); MEAN CORPUSCULAR HGB CONC 36.1 g/dL (31-35); MEAN CORPUSCULAR VOLUME 89.3 fL (81-99); MONOCYTES # (AUTO) 0.4 (0.2-0.8); MONOCYTES % 6.2 % (4.4-11.3); NEUTROPHILS # (AUTO) 3.1 (2.1-6.9); NEUTROPHILS % 49.8 % (38.7-80.0); PLATELET COUNT 180 x10e3/uL (140-360); RED BLOOD COUNT 3.75 x10e6/uL (4.3-5.7); RED CELL DISTRIBUTION WIDTH 12.2 % (11.7-14.4)
[~2024-12-14] MED LIST changes: +CRESTOR40 MG; -FENTANYL CITRATE/PF 100MCG/2 ML INJ ONE; +HYOSCYAMINE SULFATE 0.5 MG/ML INJ ONE; -METOCLOPRAMIDE HCL 10 MG/2ML VIAL ONE; +NEOSTIGMINE 1 MG/ML 10ML VIAL ONE; +NIFEDIPINE ER90 M1; +PHENYLEPHRINE HCL 1% 10 MG/ML VIAL ONE; +SODIUM CHLORIDE 0.9% 100 ML ONE
[2024-12-14] MEDS: LACTATED RINGER'S 1,000 ML ONE (07:34)
[2024-12-14] MEDS: ONDANSETRON HCL INJ 2MG/ML 2ML 2 MG/ML VIAL ONE (07:34)
[2024-12-14 10:21] VITALS: TEMP 97.4
[2024-12-14 10:45] VITALS: BP 117/77; PULSE 86; RESP 18; O2SAT 98
== END | disposition home or self-care (01) ==
LOC: OR 06:45
PROVIDERS: ATTEND Internal Medicine Gastroenterology
DX: Z12.11 Encounter for screening for malignant neoplasm of colon (principal); D12.0 Benign neoplasm of cecum; D12.3 Benign neoplasm of transverse colon; D12.4 Benign neoplasm of descending colon; K57.30 Diverticulosis of large intestine without perforation or abscess without bleeding; K64.8 Other hemorrhoids; K28.9 Gastrojejunal ulcer, unspecified as acute or chronic, without hemorrhage or perforation; K29.60 Other gastritis without bleeding; E11.9 Type 2 diabetes mellitus without complications; I10 Essential (primary) hypertension; Z88.2 Allergy status to sulfonamides; Z01.812 Encounter for preprocedural laboratory examination; Z79.84 Long term (current) use of oral hypoglycemic drugs; Z79.4 Long term (current) use of insulin; Z68.28 Body mass index [BMI] 28.0-28.9, adult; Z71.3 Dietary counseling and surveillance; Z86.73 Personal history of transient ischemic attack (TIA), and cerebral infarction without residual deficits
CPT/HCPCS: 36415 ×2; 45381; 45385; 82948; 85025; 88305; J1980; J2003; J2371; J2405; J2704; J2710; J7050; J7121; 45378